=== PATIENT | male | born 1995 | race Caucasian/White ===

== ENCOUNTER → 2016-10-19 | Outpatient (CLI) | payer OTHER ==
[~2016-10-19] MED LIST: DOCU-30 PO; FAMO-79 PO; FILG300D2 PO; HYDR-3241 PO; LORA0.5T PO; LORA10CA PO; ONDA-39 PO; POTA20TA14 PO; POTA20TA91 PO; POTASSIUM; SULF1TAB3 PO; no home meds
== END | disposition home or self-care (01) ==
LOC: RAD 15:47
PROVIDERS: ATTEND Internal Medicine Hematology & Oncology
DX: C85.29 Mediastinal (thymic) large B-cell lymphoma, extranodal and solid organ sites (principal)
CPT/HCPCS: J1642

== ENCOUNTER → 2016-11-07 | Outpatient (CLI) | payer OTHER ==
[~2016-11-07] MED LIST changes: +GADOBUTROL 7.5 MMOL/7.5 ML PFS ONE; +GUAI5SYR PO; +NYST1000 PO
== END | disposition home or self-care (01) ==
LOC: RAD 14:17
PROVIDERS: ATTEND Internal Medicine Hematology & Oncology
DX: R51 Headache (principal); H53.9 Unspecified visual disturbance; C85.90 Non-Hodgkin lymphoma, unspecified, unspecified site
CPT/HCPCS: 70543; 70553; A9585

== ENCOUNTER 2016-11-09 12:09 | Inpatient (IN) | payer OTHER ==
[~2016-11-09] VITALS: Ht 182.9 cm; Wt 68.6 kg
[~2016-11-09 12:09] MED LIST changes: -GADOBUTROL 7.5 MMOL/7.5 ML PFS ONE
[2016-11-09] MEDS ORDERED: PLEASE ENTER HEIGHT AND WEIGHT MC SCH (13:00)
[2016-11-09] MEDS ORDERED: NACL IV SCH (13:30)
[2016-11-09] MEDS ORDERED: SODIUM ACETATE IV SCH (13:30)
[2016-11-09] MEDS ORDERED: D5 IV SCH (13:30)
[2016-11-09 13:40] LABS: HEMOGLOBIN 11.9 g/dL (13.7-18.0)
[2016-11-09 13:52] LABS: ASPARTATE AMINO TRANSFERASE 22 U/L (15-37); BLOOD UREA NITROGEN 10 mg/dL (7-18)
[2016-11-09] MEDS: NACL IV SCH ×2 (13:58→22:00)
[2016-11-09] MEDS: D5 IV SCH ×2 (13:58→22:00)
[2016-11-09] MEDS: SODIUM ACETATE IV SCH ×2 (13:58→22:00)
[2016-11-09] MEDS ORDERED: PROCHLORPERAZINE 5 MG TABLET PO PRN (14:00)
[2016-11-09] MEDS ORDERED: HYDROcodone/APAP 5/325 TABLET PO PRN (14:00)
[2016-11-09] MEDS ORDERED: ZOLPIDEM 5MG TABLET PO PRN (14:00)
[2016-11-09] MEDS ORDERED: ACETAMINOPHEN 325 MG TABLET PO PRN (14:00)
[2016-11-09 14:15] VITALS: BP 105/64
[2016-11-09] MEDS ORDERED: RITUXIMAB IV ONE ×2 (14:30→16:30)
[2016-11-09] MEDS ORDERED: SODIUM CHLORIDE 0.9% IV ONE ×2 (14:30→16:30)
[2016-11-09] MEDS ORDERED: FOSAPREPITANT 150 MG in SODIUM CHLORIDE 0.9% 145 ML IV ONE (15:00)
[2016-11-09] MEDS ORDERED: DIPHENHYDRAMINE 25 MG CAPSULE PO ONE (15:30)
[2016-11-09] MEDS ORDERED: ACETAMINOPHEN 325 MG TABLET PO ONE (15:30)
[2016-11-09] MEDS ORDERED: ONDANSETRON 16 MG in SODIUM CHLORIDE 0.9% 50 ML IVPB ONE (15:30)
[2016-11-09] MEDS: predniSONE 50MG TABLET PO SCH ×2 (15:42→21:18)
[2016-11-09] MEDS: FAMOTIDINE 20 MG/2 ML IVPush SCH (15:42)
[2016-11-09 19:39] VITALS: BP 115/75
[2016-11-09] MEDS: LORazepam 0.5MG TABLET PO PRN (21:18)
[2016-11-09] MEDS: [UNRECOGNIZED DRUG - OTHER] IV SCH (22:44)
[2016-11-09] MEDS: VINCRISTINE IV SCH (22:44)
[2016-11-09] MEDS: DOXORUBICIN IV SCH (22:44)
[2016-11-09] MEDS: ETOPOSIDE IV SCH (22:44)
[2016-11-10 03:59] VITALS: BP 134/62
[2016-11-10] MEDS: SODIUM ACETATE IV SCH ×2 (05:18→14:40)
[2016-11-10] MEDS: D5 IV SCH ×2 (05:18→14:40)
[2016-11-10] MEDS: NACL IV SCH ×2 (05:18→14:40)
[2016-11-10 05:59] LABS: HEMOGLOBIN 11.7 g/dL (13.7-18.0)
[2016-11-10 06:12] LABS: ASPARTATE AMINO TRANSFERASE 10 U/L (15-37); BLOOD UREA NITROGEN 11 mg/dL (7-18)
[2016-11-10 07:10] VITALS: BP 124/62
[2016-11-10] MEDS: predniSONE 50MG TABLET PO SCH ×2 (07:26→19:35)
[2016-11-10] MEDS: SULFAMETH./TRIMETHOPRIM DS 800MG/160MG TABLET PO SCH (07:26)
[2016-11-10] MEDS: OMEPRAZOLE 20 MG CAPSULE.DR PO SCH (07:26)
[2016-11-10 12:58] VITALS: BP 135/76
[2016-11-10] MEDS: NEUTRA PHOS K 250 MG TABLET PO SCH ×2 (13:39→19:34)
[2016-11-10] MEDS: FAMOTIDINE 20 MG/2 ML IVPush SCH (14:40)
[2016-11-10 19:56] VITALS: BP 123/63
[2016-11-10] MEDS: VINCRISTINE IV SCH (22:56)
[2016-11-10] MEDS: DOXORUBICIN IV SCH (22:56)
[2016-11-10] MEDS: [UNRECOGNIZED DRUG - OTHER] IV SCH (22:56)
[2016-11-10] MEDS: ETOPOSIDE IV SCH (22:56)
[2016-11-11] MEDS: D5 IV SCH ×3 (01:14→22:44)
[2016-11-11] MEDS: SODIUM ACETATE IV SCH ×3 (01:14→22:44)
[2016-11-11] MEDS: NACL IV SCH ×3 (01:14→22:44)
[2016-11-11 03:36] VITALS: BP 119/64
[2016-11-11 06:27] LABS: HEMOGLOBIN 10.8 g/dL (13.7-18.0)
[2016-11-11 06:36] LABS: ASPARTATE AMINO TRANSFERASE 12 U/L (15-37); BLOOD UREA NITROGEN 9 mg/dL (7-18)
[2016-11-11 07:13] VITALS: BP 133/75
[2016-11-11] MEDS: OMEPRAZOLE 20 MG CAPSULE.DR PO SCH (09:26)
[2016-11-11] MEDS: predniSONE 50MG TABLET PO SCH ×2 (09:26→21:37)
[2016-11-11] MEDS ORDERED: LORATADINE 10 MG TABLET PO PRN (10:00)
[2016-11-11 14:52] VITALS: BP 145/83
[2016-11-11] MEDS: FAMOTIDINE 20 MG/2 ML IVPush SCH (15:52)
[2016-11-11 19:50] VITALS: BP 136/80
[2016-11-11] MEDS: LORazepam 0.5MG TABLET PO PRN (23:49)
[2016-11-12] MEDS: VINCRISTINE IV SCH (00:24)
[2016-11-12] MEDS: DOXORUBICIN IV SCH (00:24)
[2016-11-12] MEDS: ETOPOSIDE IV SCH (00:24)
[2016-11-12] MEDS: [UNRECOGNIZED DRUG - OTHER] IV SCH (00:24)
[2016-11-12 03:55] VITALS: BP 139/72
[2016-11-12 06:21] LABS: HEMOGLOBIN 11.6 g/dL (13.7-18.0)
[2016-11-12 06:23] LABS: ASPARTATE AMINO TRANSFERASE 11 U/L (15-37); BLOOD UREA NITROGEN 10 mg/dL (7-18)
[2016-11-12] MEDS: predniSONE 50MG TABLET PO SCH ×2 (08:03→21:43)
[2016-11-12] MEDS: OMEPRAZOLE 20 MG CAPSULE.DR PO SCH (08:03)
[2016-11-12 08:16] VITALS: BP 135/73
[2016-11-12] MEDS: NACL IV SCH ×2 (09:17→21:04)
[2016-11-12] MEDS: SODIUM ACETATE IV SCH ×2 (09:17→21:04)
[2016-11-12] MEDS: D5 IV SCH ×2 (09:17→21:04)
[2016-11-12] MEDS ORDERED: ONDANSETRON 2MG/ML, 2ML IVPush PRN (12:00)
[2016-11-12 13:43] VITALS: BP_SYST 132; BP_SYST 148; BP_DIAS 73; BP_DIAS 81
[2016-11-12] MEDS: FAMOTIDINE 20 MG/2 ML IVPush SCH (16:05)
[2016-11-12 20:35] VITALS: BP 132/66
[2016-11-13] MEDS: ETOPOSIDE IV SCH (00:36)
[2016-11-13] MEDS: [UNRECOGNIZED DRUG - OTHER] IV SCH (00:36)
[2016-11-13] MEDS: VINCRISTINE IV SCH (00:36)
[2016-11-13] MEDS: DOXORUBICIN IV SCH (00:36)
[2016-11-13 02:59] VITALS: BP 121/70
[2016-11-13 04:39] LABS: HEMOGLOBIN 11.9 g/dL (13.7-18.0)
[2016-11-13 04:56] LABS: BLOOD UREA NITROGEN 11 mg/dL (7-18)
[2016-11-13 05:00] LABS: ASPARTATE AMINO TRANSFERASE 12 U/L (15-37)
[2016-11-13 07:22] VITALS: BP 137/87
[2016-11-13] MEDS: predniSONE 50MG TABLET PO SCH ×2 (08:17→20:42)
[2016-11-13] MEDS: OMEPRAZOLE 20 MG CAPSULE.DR PO SCH (08:17)
[2016-11-13] MEDS: SULFAMETH./TRIMETHOPRIM DS 800MG/160MG TABLET PO SCH (08:19)
[2016-11-13] MEDS: D5 IV SCH ×2 (08:20→19:47)
[2016-11-13] MEDS: SODIUM ACETATE IV SCH ×2 (08:20→19:47)
[2016-11-13] MEDS: NACL IV SCH ×2 (08:20→19:47)
[2016-11-13 12:44] VITALS: BP 148/70
[2016-11-13] MEDS: FAMOTIDINE 20 MG/2 ML IVPush SCH (16:22)
[2016-11-13 20:00] VITALS: BP 136/61
[2016-11-14] MEDS ORDERED: SODIUM CHLORIDE 0.9% IVPB ONE ×3 (00:45→11:00)
[2016-11-14] MEDS ORDERED: MESNA IVPB ONE ×3 (00:45→11:00)
[2016-11-14] MEDS ORDERED: SODIUM CHLORIDE 0.9% IV ONE (01:00)
[2016-11-14] MEDS ORDERED: CYCLOPHOSPHAMIDE IV ONE (01:00)
[2016-11-14 04:48] VITALS: BP 153/84
[2016-11-14 05:19] LABS: HEMOGLOBIN 11.4 g/dL (13.7-18.0)
[2016-11-14 05:30] LABS: BLOOD UREA NITROGEN 13 mg/dL (7-18)
[2016-11-14 05:33] LABS: ASPARTATE AMINO TRANSFERASE 16 U/L (15-37)
[2016-11-14] MEDS: D5 IV SCH (05:55)
[2016-11-14] MEDS: NACL IV SCH (05:55)
[2016-11-14] MEDS: SODIUM ACETATE IV SCH (05:55)
[2016-11-14 07:18] VITALS: BP 138/72
[2016-11-14] MEDS: OMEPRAZOLE 20 MG CAPSULE.DR PO SCH (07:57)
[2016-11-14] MEDS ORDERED: POTASSIUM CHLORIDE 20 MEQ TAB.ER.PRT PO ONE (09:30)
[2016-11-14] MEDS ORDERED: NEUTRA PHOS K 250 MG TABLET PO ONE (09:30)
[2016-11-14] MEDS ORDERED: SULF1TAB24 PO (11:35)
[2016-11-14] MEDS ORDERED: LORazepam 1MG TABLET ONE (11:52)
[2016-11-14] MEDS: LORazepam 0.5MG TABLET PO PRN (11:55)
== END 2016-11-14 13:11 | disposition home or self-care (01) | DRG 847 ==
LOC: 3NE 12:09 → 3NW 12:29
PROVIDERS: ADMIT Internal Medicine Hematology & Oncology; ATTEND Internal Medicine Hematology & Oncology
DX: Z51.11 Encounter for antineoplastic chemotherapy (principal); C85.20 Mediastinal (thymic) large B-cell lymphoma, unspecified site; C79.00 Secondary malignant neoplasm of unspecified kidney and renal pelvis; C79.51 Secondary malignant neoplasm of bone; C78.89 Secondary malignant neoplasm of other digestive organs; C78.00 Secondary malignant neoplasm of unspecified lung; G43.909 Migraine, unspecified, not intractable, without status migrainosus; G43.109 Migraine with aura, not intractable, without status migrainosus; G40.909 Epilepsy, unspecified, not intractable, without status epilepticus; Z80.3 Family history of malignant neoplasm of breast; Z80.1 Family history of malignant neoplasm of trachea, bronchus and lung; K12.30 Oral mucositis (ulcerative), unspecified; R53.83 Other fatigue; R63.4 Abnormal weight loss; R20.0 Anesthesia of skin
CPT/HCPCS: 36415; 80053; 83615; 83735; 84100; 84550; 85025; 85610; 85730; J1453; J2405; J9000; J9070; J9181; J9209; J9310; J7030; J7050; J7512; J9370; Q0163; S0028

== ENCOUNTER 2016-11-28 05:43 | Day surgery (SDC) | payer OTHER ==
[~2016-11-28] VITALS: Ht 182.9 cm; Wt 64.0 kg
[~2016-11-28 05:43] MED LIST changes: +SULF1TAB24 PO
[2016-11-28 06:20] VITALS: BP 121/48
[2016-11-28] MEDS ORDERED: LACTATED RINGERS 1,000 ML IV SCH (06:25)
[2016-11-28] MEDS ORDERED: NYST5000 PO (06:45)
[2016-11-28 06:46] VITALS: BP 113/67
[2016-11-28] MEDS ORDERED: POTA20TA89 PO (06:46)
[2016-11-28] MEDS ORDERED: FENTANYL PF 250 MCG/5ML ONE (07:06)
[2016-11-28] MEDS ORDERED: MIDAZOLAM 1 MG/ML, 2ML ONE (07:06)
[2016-11-28] MEDS ORDERED: MEPERIDINE/PF 25MG/0.5ML IVPush PRN (07:30)
[2016-11-28] MEDS ORDERED: PROMETHAZINE 25 MG/ML, 1ML IV PRN (07:30)
[2016-11-28] MEDS ORDERED: FENTANYL PF 100 MCG/2ML IV PRN (07:30)
[2016-11-28] MEDS ORDERED: OXYcodone 5 MG/5 ML ORAL.SOL UDC PO PRN (07:30)
[2016-11-28] MEDS ORDERED: ALBUTEROL SULFATE 2.5 MG/3 ML NPPB PRN (07:30)
[2016-11-28] MEDS ORDERED: LABETALOL 5MG/ML, 20ML IV PRN (07:30)
[2016-11-28] MEDS ORDERED: hydrALAzine 20 MG/ML, 1ML IV PRN (07:30)
[2016-11-28] MEDS ORDERED: HYDROmorphone 1 MG/ML, 1ML IV PRN (07:30)
[2016-11-28] MEDS ORDERED: ONDANSETRON 2MG/ML, 2ML IVPush PRN (07:30)
[2016-11-28] MEDS ORDERED: MIDAZOLAM 1 MG/ML, 2ML IV PRN (07:30)
[2016-11-28] MEDS ORDERED: ACETAMINOPHEN 325 MG TABLET PO PRN (07:30)
[2016-11-28] MEDS ORDERED: OMNIPAQUE 350 MG/ML, 50 ML BOTTLE ONE (08:25)
[2016-11-28] MEDS ORDERED: ROCURONIUM 10 MG/ML ONE (15:25)
[2016-11-28] MEDS ORDERED: DEXAMETHASONE 4 MG/ML, 1ML ONE (15:25)
[2016-11-28] MEDS ORDERED: SUCCINYLCHOLINE 20 MG/ML, 10ML ONE (15:25)
[2016-11-28] MEDS ORDERED: PROPOFOL 10 MG/ML, 20ML ONE (15:25)
[2016-11-28] MEDS ORDERED: ONDANSETRON 2MG/ML, 2ML ONE (15:25)
== END 2016-11-28 09:45 ==
LOC: OUT 05:43
PROVIDERS: ATTEND Internal Medicine Geriatric Medicine
DX: C85.83 Other specified types of non-Hodgkin lymphoma, intra-abdominal lymph nodes (principal)
CPT/HCPCS: 43275; 74328; C1769; J0330; J1100; J2250; J2405; J2704; J3010; J7120; Q9967

== ENCOUNTER 2016-11-30 08:16 | Inpatient (IN) | payer OTHER ==
[~2016-11-30] VITALS: Ht 182.9 cm; Wt 69.4 kg
[~2016-11-30 08:16] MED LIST changes: +NYST5000 PO; +POTA20TA89 PO
[2016-11-30 09:04] VITALS: BP 121/68
[2016-11-30] MEDS ORDERED: MIDAZOLAM 1 MG/ML, 5ML ONE (09:55)
[2016-11-30] MEDS ORDERED: FENTANYL PF 100 MCG/2ML ONE (09:56)
[2016-11-30 10:05] LABS: BLOOD UREA NITROGEN 13 mg/dL (7-18)
[2016-11-30 10:08] LABS: ASPARTATE AMINO TRANSFERASE 14 U/L (15-37)
[2016-11-30 10:27] LABS: DIFF TOTAL CELLS COUNTED 100 CELL DIFF
[2016-11-30 10:28] LABS: ANISOCYTOSIS 1+; VERIFY COUNTS? YES
[2016-11-30 10:42] LABS: CYTOLOGY BODY FLUID RECD INTO PATHOLOGY; CYTOLOGY BODY FLUID SOURCE CEREBROSPINAL FLUID
[2016-11-30 10:57] LABS: GLUCOSE, CSF 47 mg/dL (40-80)
[2016-11-30] MEDS ORDERED: METHOTREXATE/PF 2ML 12 MG in SODIUM CHLORIDE 0.9% 4.52 ML IT ONE (11:00)
[2016-11-30] MEDS ORDERED: SODIUM ACETATE IV ONE (11:00)
[2016-11-30] MEDS ORDERED: NACL IV ONE (11:00)
[2016-11-30] MEDS ORDERED: D5 IV ONE (11:00)
[2016-11-30] MEDS: NACL IV SCH (11:03)
[2016-11-30] MEDS: SODIUM ACETATE IV SCH (11:03)
[2016-11-30] MEDS: D5 IV SCH (11:03)
[2016-11-30] MEDS ORDERED: PROCHLORPERAZINE 10MG TABLET PO PRN (11:30)
[2016-11-30] MEDS ORDERED: HYDROcodone/APAP 5/325 TABLET PO PRN (11:30)
[2016-11-30] MEDS ORDERED: LORazepam 0.5MG TABLET PO PRN (11:30)
[2016-11-30] MEDS ORDERED: FOSAPREPITANT 150 MG in SODIUM CHLORIDE 0.9% 150 ML IV ONE (12:30)
[2016-11-30] MEDS ORDERED: ACETAMINOPHEN 325 MG TABLET PO ONE (12:30)
[2016-11-30] MEDS ORDERED: ONDANSETRON 16 MG in SODIUM CHLORIDE 0.9% 50 ML IVPB ONE (12:30)
[2016-11-30] MEDS ORDERED: DIPHENHYDRAMINE 25 MG CAPSULE PO ONE (12:30)
[2016-11-30] MEDS: FAMOTIDINE 20 MG/2 ML IVPush SCH (12:42)
[2016-11-30] MEDS: predniSONE 50MG TABLET PO SCH ×2 (12:43→21:20)
[2016-11-30 13:21] VITALS: BP 116/70
[2016-11-30] MEDS: OMEPRAZOLE 20 MG CAPSULE.DR PO SCH (13:59)
[2016-11-30] MEDS ORDERED: RITUXIMAB 700 MG in SODIUM CHLORIDE 0.9% 250 ML IV ONE (14:00)
[2016-11-30] MEDS: DOXORUBICIN IV SCH (18:24)
[2016-11-30] MEDS: [UNRECOGNIZED DRUG - OTHER] IV SCH (18:24)
[2016-11-30] MEDS: ETOPOSIDE IV SCH (18:24)
[2016-11-30] MEDS: VINCRISTINE IV SCH (18:24)
[2016-11-30] MEDS ORDERED: ACETAMINOPHEN 325 MG TABLET PO PRN (18:30)
[2016-11-30] MEDS ORDERED: ONDANSETRON 2MG/ML, 2ML IVPush PRN (19:00)
[2016-11-30 20:26] VITALS: BP 122/74
[2016-11-30] MEDS ORDERED: ZOLPIDEM 5MG TABLET PO PRN (21:00)
[2016-12-01 03:37] VITALS: BP 109/58
[2016-12-01] MEDS: D5 IV SCH ×2 (03:37→17:51)
[2016-12-01] MEDS: SODIUM ACETATE IV SCH ×2 (03:37→17:51)
[2016-12-01] MEDS: NACL IV SCH ×2 (03:37→17:51)
[2016-12-01 04:49] LABS: ASPARTATE AMINO TRANSFERASE 13 U/L (15-37); BLOOD UREA NITROGEN 8 mg/dL (7-18)
[2016-12-01 08:10] VITALS: BP 112/72
[2016-12-01] MEDS: SULFAMETH./TRIMETHOPRIM DS 800MG/160MG TABLET PO SCH (08:20)
[2016-12-01] MEDS: OMEPRAZOLE 20 MG CAPSULE.DR PO SCH (08:20)
[2016-12-01] MEDS: predniSONE 50MG TABLET PO SCH ×2 (08:21→19:30)
[2016-12-01] MEDS: FAMOTIDINE 20 MG/2 ML IVPush SCH (08:23)
[2016-12-01 12:49] VITALS: BP 120/75
[2016-12-01] MEDS: ETOPOSIDE IV SCH (19:33)
[2016-12-01] MEDS: VINCRISTINE IV SCH (19:33)
[2016-12-01] MEDS: DOXORUBICIN IV SCH (19:33)
[2016-12-01] MEDS: [UNRECOGNIZED DRUG - OTHER] IV SCH (19:33)
[2016-12-01 21:15] VITALS: BP 117/51
[2016-12-02 04:54] VITALS: BP 134/74
[2016-12-02 05:30] LABS: BLOOD UREA NITROGEN 10 mg/dL (7-18)
[2016-12-02 05:34] LABS: ASPARTATE AMINO TRANSFERASE 11 U/L (15-37)
[2016-12-02 07:48] VITALS: BP 127/67
[2016-12-02] MEDS: predniSONE 50MG TABLET PO SCH ×2 (08:08→20:37)
[2016-12-02] MEDS: OMEPRAZOLE 20 MG CAPSULE.DR PO SCH (08:08)
[2016-12-02] MEDS: SODIUM ACETATE IV SCH ×2 (09:13→23:39)
[2016-12-02] MEDS: FAMOTIDINE 20 MG/2 ML IVPush SCH (09:13)
[2016-12-02] MEDS: D5 IV SCH ×2 (09:13→23:39)
[2016-12-02] MEDS: NACL IV SCH ×2 (09:13→23:39)
[2016-12-02 13:07] VITALS: BP 132/78
[2016-12-02 20:17] VITALS: BP 139/79
[2016-12-02] MEDS: VINCRISTINE IV SCH (20:44)
[2016-12-02] MEDS: [UNRECOGNIZED DRUG - OTHER] IV SCH (20:44)
[2016-12-02] MEDS: DOXORUBICIN IV SCH (20:44)
[2016-12-02] MEDS: ETOPOSIDE IV SCH (20:44)
[2016-12-03] MEDS ORDERED: DOCUSATE 100 MG CAPSULE PO PRN (00:30)
[2016-12-03 01:08] VITALS: BP 145/90
[2016-12-03 05:46] VITALS: BP 121/66
[2016-12-03 06:07] LABS: BLOOD UREA NITROGEN 9 mg/dL (7-18)
[2016-12-03 06:10] LABS: ASPARTATE AMINO TRANSFERASE 11 U/L (15-37)
[2016-12-03 07:12] VITALS: BP 120/57
[2016-12-03] MEDS: OMEPRAZOLE 20 MG CAPSULE.DR PO SCH (07:30)
[2016-12-03] MEDS: FAMOTIDINE 20 MG/2 ML IVPush SCH (08:38)
[2016-12-03] MEDS: predniSONE 50MG TABLET PO SCH ×2 (08:39→19:52)
[2016-12-03 13:38] VITALS: BP 124/78
[2016-12-03] MEDS: NACL IV SCH (15:07)
[2016-12-03] MEDS: SODIUM ACETATE IV SCH (15:07)
[2016-12-03] MEDS: D5 IV SCH (15:07)
[2016-12-03 20:25] VITALS: BP 130/70
[2016-12-03] MEDS: ETOPOSIDE IV SCH (21:50)
[2016-12-03] MEDS: [UNRECOGNIZED DRUG - OTHER] IV SCH (21:50)
[2016-12-03] MEDS: VINCRISTINE IV SCH (21:50)
[2016-12-03] MEDS: DOXORUBICIN IV SCH (21:50)
[2016-12-04 02:58] VITALS: BP 121/67
[2016-12-04] MEDS: SODIUM ACETATE IV SCH ×2 (06:06→21:09)
[2016-12-04] MEDS: D5 IV SCH ×2 (06:06→21:09)
[2016-12-04] MEDS: NACL IV SCH ×2 (06:06→21:09)
[2016-12-04 06:21] LABS: ASPARTATE AMINO TRANSFERASE 11 U/L (15-37); BLOOD UREA NITROGEN 12 mg/dL (7-18)
[2016-12-04 06:43] VITALS: BP 134/81
[2016-12-04] MEDS: OMEPRAZOLE 20 MG CAPSULE.DR PO SCH (08:12)
[2016-12-04] MEDS: FAMOTIDINE 20 MG/2 ML IVPush SCH (08:12)
[2016-12-04] MEDS: SULFAMETH./TRIMETHOPRIM DS 800MG/160MG TABLET PO SCH (09:30)
[2016-12-04] MEDS: predniSONE 50MG TABLET PO SCH ×2 (09:30→21:09)
[2016-12-04 12:42] VITALS: BP 120/71
[2016-12-04] MEDS ORDERED: NALOXONE 1 MG/ML, 2ML ONE (13:30)
[2016-12-04] MEDS ORDERED: FLUMAZENIL 0.1 MG/1 ML, 5ML ONE (13:30)
[2016-12-04] MEDS ORDERED: FENTANYL PF 100 MCG/2ML ONE (13:30)
[2016-12-04] MEDS ORDERED: MIDAZOLAM 1 MG/ML, 5ML ONE (13:30)
[2016-12-04] MEDS ORDERED: METHOTREXATE/PF 2ML 12 MG in SODIUM CHLORIDE 0.9% 4.52 ML IT ONE (14:00)
[2016-12-04 20:40] VITALS: BP 146/61
[2016-12-04] MEDS ORDERED: SODIUM CHLORIDE 0.9% IVPB ONE (22:00)
[2016-12-04] MEDS ORDERED: MESNA IVPB ONE (22:00)
[2016-12-04] MEDS ORDERED: SODIUM CHLORIDE 0.9% IV ONE (22:15)
[2016-12-04] MEDS ORDERED: CYCLOPHOSPHAMIDE IV ONE (22:15)
[2016-12-05 02:17] VITALS: BP 140/65
[2016-12-05 03:25] LABS: BLOOD UREA NITROGEN 15 mg/dL (7-18)
[2016-12-05 03:29] LABS: ASPARTATE AMINO TRANSFERASE 14 U/L (15-37)
[2016-12-05] MEDS: MESNA IVPB SCH ×2 (06:19→10:14)
[2016-12-05] MEDS: SODIUM CHLORIDE 0.9% IVPB SCH ×2 (06:19→10:14)
[2016-12-05 06:40] VITALS: BP 113/63
[2016-12-05] MEDS: OMEPRAZOLE 20 MG CAPSULE.DR PO SCH (08:29)
[2016-12-05] MEDS ORDERED: POTASSIUM CHLORIDE 20 MEQ TAB.ER.PRT PO ONE (09:00)
== END 2016-12-05 12:09 | disposition home or self-care (01) | DRG 847 ==
LOC: 3NW 08:42 → OBSVTOIN 08:42 → INTOOBSV 08:42 → 3NW 20:38
PROVIDERS: ADMIT Internal Medicine Hematology & Oncology; ATTEND Internal Medicine Hematology & Oncology
PROC: 3E0R305 Introduction of Other Antineoplastic into Spinal Canal, Percutaneous Approach (ICD-10-PCS; principal; 2016-11-30)
PROC: B01B1ZZ Fluoroscopy of Spinal Cord using Low Osmolar Contrast (ICD-10-PCS; 2016-11-30)
PROC: 009U3ZX Drainage of Spinal Canal, Percutaneous Approach, Diagnostic (ICD-10-PCS; 2016-11-30)
PROC: 009U3ZX Drainage of Spinal Canal, Percutaneous Approach, Diagnostic (ICD-10-PCS; 2016-12-04)
PROC: B01B1ZZ Fluoroscopy of Spinal Cord using Low Osmolar Contrast (ICD-10-PCS; 2016-12-04)
PROC: 3E0R305 Introduction of Other Antineoplastic into Spinal Canal, Percutaneous Approach (ICD-10-PCS; 2016-12-04)
DX: Z51.11 Encounter for antineoplastic chemotherapy (principal); C85.29 Mediastinal (thymic) large B-cell lymphoma, extranodal and solid organ sites; D64.9 Anemia, unspecified; E87.6 Hypokalemia; F41.9 Anxiety disorder, unspecified; G40.909 Epilepsy, unspecified, not intractable, without status epilepticus; G97.1 Other reaction to spinal and lumbar puncture; K86.9 Disease of pancreas, unspecified; Z80.1 Family history of malignant neoplasm of trachea, bronchus and lung; Z80.3 Family history of malignant neoplasm of breast; G43.909 Migraine, unspecified, not intractable, without status migrainosus
CPT/HCPCS: 36415; 62270; 77002; 80053; 82945; 83615; 83735; 84100; 84157; 85025; 85610; 85730; 88108; 96450; 99156; 99157; J1453; J2250; J2405; J3010; J9000; J9070; J9181; J9209; J9250; J9310; J2310; J7030; J7050; J7512; J9370; Q0163; S0028

== ENCOUNTER 2016-12-09 19:47 | Emergency (ER) | payer OTHER ==
[~2016-12-09] VITALS: Ht 182.9 cm; Wt 67.3 kg
[2016-12-09] MEDS ORDERED: ONDANSETRON 2MG/ML, 2ML ONE (20:49)
[2016-12-09] MEDS ORDERED: MORPHINE SULFATE 4 MG/ML, 1ML ONE (20:49)
[2016-12-09] MEDS ORDERED: OMNIPAQUE 350 MG/ML, 100ML BOTTLE ONE (20:57)
[2016-12-09] MEDS ORDERED: ONDANSETRON 2MG/ML, 2ML IVPush ONE (21:00)
[2016-12-09] MEDS ORDERED: MORPHINE SULFATE 4 MG/ML, 1ML IVPush PRN (21:00)
[2016-12-09] MEDS ORDERED: SODIUM CHLORIDE 0.9% 1,000ML IVBOLUS ONE (21:00)
[2016-12-09] MEDS ORDERED: SODIUM CHLORIDE FLUSH 10ML SYR IVF ONE (21:00)
[2016-12-09 21:08] LABS: ASPARTATE AMINO TRANSFERASE 13 U/L (15-37); BLOOD UREA NITROGEN 17 mg/dL (7-18)
[2016-12-09 21:11] LABS: DIFF TOTAL CELLS COUNTED 100 CELL DIFF
[2016-12-09 21:23] LABS: ANISOCYTOSIS 1+; VERIFY COUNTS? YES
[2016-12-09 21:24] LABS: OVALOCYTES 1+
[2016-12-09 21:25] LABS: LARGE PLATELETS 1+
[2016-12-09 22:49] VITALS: BP 114/54
== END 2016-12-09 22:51 | disposition home or self-care (01) ==
LOC: ED 22:21
DX: R51 Headache (principal); Z85.72 Personal history of non-Hodgkin lymphomas
CPT/HCPCS: 36415; 70487; 80053; 83605; 84145; 85025; 87040; 96360; 96361; 99285; J7030; Q9967

== ENCOUNTER 2016-12-21 08:00 | Inpatient (IN) | payer OTHER ==
[~2016-12-21] VITALS: Ht 182.9 cm; Wt 71.1 kg
[2016-12-21 09:24] VITALS: BP 110/66
[2016-12-21] MEDS ORDERED: PROCHLORPERAZINE 10MG TABLET PO PRN (10:00)
[2016-12-21] MEDS ORDERED: ACETAMINOPHEN 325 MG TABLET PO PRN (10:00)
[2016-12-21] MEDS ORDERED: ZOLPIDEM 5MG TABLET PO PRN (10:00)
[2016-12-21] MEDS ORDERED: HYDROcodone/APAP 5/325 TABLET PO PRN (10:00)
[2016-12-21] MEDS ORDERED: LORazepam 0.5MG TABLET PO PRN (10:00)
[2016-12-21] MEDS: SODIUM ACETATE IV SCH (10:32)
[2016-12-21] MEDS: D5 IV SCH (10:32)
[2016-12-21] MEDS: NACL IV SCH (10:32)
[2016-12-21 10:33] LABS: ASPARTATE AMINO TRANSFERASE 19 U/L (15-37); BLOOD UREA NITROGEN 6 mg/dL (7-18)
[2016-12-21 10:43] LABS: DIFF TOTAL CELLS COUNTED 100 CELL DIFF
[2016-12-21] MEDS ORDERED: METHOTREXATE/PF 2ML 12 MG in SODIUM CHLORIDE 0.9% 4.52 ML IT ONE (11:00)
[2016-12-21 11:08] LABS: VERIFY COUNTS? YES
[2016-12-21] MEDS ORDERED: FENTANYL PF 100 MCG/2ML ONE (11:11)
[2016-12-21] MEDS ORDERED: MIDAZOLAM 1 MG/ML, 5ML ONE (11:11)
[2016-12-21] MEDS ORDERED: ONDANSETRON 16 MG in SODIUM CHLORIDE 0.9% 50 ML IVPB ONE (13:00)
[2016-12-21] MEDS ORDERED: ACETAMINOPHEN 325 MG TABLET PO ONE (13:00)
[2016-12-21] MEDS ORDERED: FOSAPREPITANT 150 MG in SODIUM CHLORIDE 0.9% 150 ML IV ONE (13:00)
[2016-12-21] MEDS ORDERED: DIPHENHYDRAMINE 25 MG CAPSULE PO ONE (13:00)
[2016-12-21] MEDS: OMEPRAZOLE 20 MG CAPSULE.DR PO SCH (13:13)
[2016-12-21] MEDS: predniSONE 50MG TABLET PO SCH ×2 (13:13→20:29)
[2016-12-21] MEDS: FAMOTIDINE 20 MG/2 ML IVPush SCH (13:13)
[2016-12-21] MEDS ORDERED: RITUXIMAB 700 MG in SODIUM CHLORIDE 0.9% 250 ML IV ONE (13:30)
[2016-12-21 14:36] VITALS: BP 113/66
[2016-12-21 19:43] VITALS: BP 106/62
[2016-12-21] MEDS ORDERED: VINCRISTINE IV SCH (21:00)
[2016-12-21] MEDS ORDERED: DOXORUBICIN IV SCH (21:00)
[2016-12-21] MEDS ORDERED: ETOPOSIDE IV SCH (21:00)
[2016-12-21] MEDS ORDERED: [UNRECOGNIZED DRUG - OTHER] IV SCH (21:00)
[2016-12-22 04:05] VITALS: BP 108/62
[2016-12-22] MEDS: SODIUM ACETATE IV SCH ×2 (05:39→20:23)
[2016-12-22] MEDS: D5 IV SCH ×2 (05:39→20:23)
[2016-12-22] MEDS: NACL IV SCH ×2 (05:39→20:23)
[2016-12-22 06:07] LABS: BLOOD UREA NITROGEN 7 mg/dL (7-18)
[2016-12-22 06:12] LABS: ASPARTATE AMINO TRANSFERASE 4 U/L (15-37)
[2016-12-22] MEDS: OMEPRAZOLE 20 MG CAPSULE.DR PO SCH (08:32)
[2016-12-22] MEDS: SULFAMETH./TRIMETHOPRIM DS 800MG/160MG TABLET PO SCH (08:32)
[2016-12-22] MEDS: predniSONE 50MG TABLET PO SCH ×2 (08:32→20:23)
[2016-12-22 08:33] VITALS: BP 111/50
[2016-12-22] MEDS: FAMOTIDINE 20 MG/2 ML IVPush SCH (14:01)
[2016-12-22 14:27] VITALS: BP 116/67
[2016-12-22] MEDS ORDERED: [UNRECOGNIZED DRUG - OTHER] IV SCH (18:00)
[2016-12-22] MEDS ORDERED: ETOPOSIDE IV SCH (18:00)
[2016-12-22] MEDS ORDERED: VINCRISTINE IV SCH (18:00)
[2016-12-22] MEDS ORDERED: DOXORUBICIN IV SCH (18:00)
[2016-12-22 18:55] VITALS: BP 122/69
[2016-12-23 05:27] VITALS: BP 181/50
[2016-12-23 05:38] VITALS: BP 121/64
[2016-12-23 06:02] LABS: BLOOD UREA NITROGEN 11 mg/dL (7-18)
[2016-12-23 06:05] LABS: ASPARTATE AMINO TRANSFERASE 9 U/L (15-37)
[2016-12-23] MEDS: predniSONE 50MG TABLET PO SCH ×2 (08:36→21:18)
[2016-12-23] MEDS: OMEPRAZOLE 20 MG CAPSULE.DR PO SCH (08:36)
[2016-12-23 08:40] VITALS: BP 124/73
[2016-12-23] MEDS: SODIUM ACETATE IV SCH (11:11)
[2016-12-23] MEDS: NACL IV SCH (11:11)
[2016-12-23] MEDS: D5 IV SCH (11:11)
[2016-12-23 13:50] VITALS: BP 133/77
[2016-12-23] MEDS: FAMOTIDINE 20 MG/2 ML IVPush SCH (14:24)
[2016-12-23] MEDS ORDERED: [UNRECOGNIZED DRUG - OTHER] IV SCH (18:00)
[2016-12-23] MEDS ORDERED: ETOPOSIDE IV SCH (18:00)
[2016-12-23] MEDS ORDERED: VINCRISTINE IV SCH (18:00)
[2016-12-23] MEDS ORDERED: DOXORUBICIN IV SCH (18:00)
[2016-12-23 19:56] VITALS: BP 138/79
[2016-12-24] MEDS: NACL IV SCH ×2 (00:40→14:42)
[2016-12-24] MEDS: D5 IV SCH ×2 (00:40→14:42)
[2016-12-24] MEDS: SODIUM ACETATE IV SCH ×2 (00:40→14:42)
[2016-12-24 02:16] VITALS: BP 133/72
[2016-12-24 05:53] LABS: ASPARTATE AMINO TRANSFERASE 13 U/L (15-37); BLOOD UREA NITROGEN 10 mg/dL (7-18)
[2016-12-24 07:00] VITALS: BP 142/67
[2016-12-24] MEDS: OMEPRAZOLE 20 MG CAPSULE.DR PO SCH (08:00)
[2016-12-24] MEDS: FAMOTIDINE 20 MG/2 ML IVPush SCH (08:59)
[2016-12-24] MEDS: predniSONE 50MG TABLET PO SCH ×2 (09:03→21:03)
[2016-12-24 13:40] VITALS: BP 152/78
[2016-12-24] MEDS ORDERED: DOXORUBICIN IV SCH (18:00)
[2016-12-24] MEDS ORDERED: VINCRISTINE IV SCH (18:00)
[2016-12-24] MEDS ORDERED: ETOPOSIDE IV SCH (18:00)
[2016-12-24] MEDS ORDERED: [UNRECOGNIZED DRUG - OTHER] IV SCH (18:00)
[2016-12-24 19:22] VITALS: BP 144/72
[2016-12-25 04:30] VITALS: BP 133/73
[2016-12-25] MEDS: SODIUM ACETATE IV SCH ×2 (04:51→19:44)
[2016-12-25] MEDS: NACL IV SCH ×2 (04:51→19:44)
[2016-12-25] MEDS: D5 IV SCH ×2 (04:51→19:44)
[2016-12-25 06:00] LABS: ASPARTATE AMINO TRANSFERASE 10 U/L (15-37); BLOOD UREA NITROGEN 11 mg/dL (7-18)
[2016-12-25] MEDS ORDERED: FLUMAZENIL 0.1 MG/1 ML, 5ML ONE (09:05)
[2016-12-25] MEDS ORDERED: MIDAZOLAM 1 MG/ML, 5ML ONE (09:05)
[2016-12-25] MEDS ORDERED: FENTANYL PF 100 MCG/2ML ONE (09:05)
[2016-12-25] MEDS ORDERED: NALOXONE 1 MG/ML, 2ML ONE (09:05)
[2016-12-25] MEDS ORDERED: METHOTREXATE/PF 2ML 12 MG in SODIUM CHLORIDE 0.9% 4.52 ML IT ONE ×2 (10:00→11:00)
[2016-12-25 10:48] VITALS: BP 144/76
[2016-12-25] MEDS: OMEPRAZOLE 20 MG CAPSULE.DR PO SCH (10:57)
[2016-12-25] MEDS: SULFAMETH./TRIMETHOPRIM DS 800MG/160MG TABLET PO SCH (10:58)
[2016-12-25] MEDS: predniSONE 50MG TABLET PO SCH ×2 (10:58→20:51)
[2016-12-25 12:33] VITALS: BP 140/81
[2016-12-25 14:00] VITALS: BP 124/59
[2016-12-25] MEDS: FAMOTIDINE 20 MG/2 ML IVPush SCH (14:27)
[2016-12-25] MEDS ORDERED: MESNA IVPB ONE (19:30)
[2016-12-25] MEDS ORDERED: SODIUM CHLORIDE 0.9% IVPB ONE (19:30)
[2016-12-25 19:44] VITALS: BP 130/80
[2016-12-25] MEDS ORDERED: SODIUM CHLORIDE 0.9% IV ONE (20:00)
[2016-12-25] MEDS ORDERED: CYCLOPHOSPHAMIDE IV ONE (20:00)
[2016-12-26 02:10] VITALS: BP 126/82
[2016-12-26] MEDS: SODIUM CHLORIDE 0.9% IVPB SCH ×2 (03:16→06:20)
[2016-12-26] MEDS: MESNA IVPB SCH ×2 (03:16→06:20)
[2016-12-26 03:41] LABS: ASPARTATE AMINO TRANSFERASE 13 U/L (15-37); BLOOD UREA NITROGEN 11 mg/dL (7-18)
[2016-12-26] MEDS: OMEPRAZOLE 20 MG CAPSULE.DR PO SCH (09:12)
[2016-12-26 11:55] VITALS: BP 138/82
== END 2016-12-26 16:55 | disposition home or self-care (01) | DRG 847 ==
LOC: 3NW 09:05
PROVIDERS: ADMIT Internal Medicine Hematology & Oncology; ATTEND Internal Medicine Hematology & Oncology
PROC: 3E0R305 Introduction of Other Antineoplastic into Spinal Canal, Percutaneous Approach (ICD-10-PCS; principal; 2016-12-21)
PROC: 3E0R305 Introduction of Other Antineoplastic into Spinal Canal, Percutaneous Approach (ICD-10-PCS; 2016-12-26)
DX: Z51.11 Encounter for antineoplastic chemotherapy (principal); C85.90 Non-Hodgkin lymphoma, unspecified, unspecified site; R17 Unspecified jaundice; D64.9 Anemia, unspecified; K86.9 Disease of pancreas, unspecified; Z80.1 Family history of malignant neoplasm of trachea, bronchus and lung; Z80.3 Family history of malignant neoplasm of breast
CPT/HCPCS: 36415; 77002; 80053; 83615; 83735; 84100; 85025; 85610; 85730; 96450; 99156; 99157; J1453; J2250; J2405; J3010; J9000; J9070; J9181; J9209; J9250; J9310; Q0164; J2310; J7030; J7050; J7512; J9370; Q0163; S0028

== ENCOUNTER 2017-02-14 06:35 | Day surgery (SDC) | payer OTHER ==
[~2017-02-14] VITALS: Ht 182.9 cm; Wt 64.3 kg
[2017-02-14 07:07] VITALS: BP 122/77
[2017-02-14] MEDS ORDERED: SODIUM CHLORIDE 0.9% 1,000 ML IV SCH (07:08)
[2017-02-14] MEDS ORDERED: CEFAZOLIN PMX 1GM/50ML 50 ML IV ONE (07:10)
[2017-02-14] MEDS ORDERED: MIDAZOLAM 1 MG/ML, 5ML ONE (07:42)
[2017-02-14] MEDS ORDERED: FENTANYL PF 100 MCG/2ML ONE (07:42)
[2017-02-14] MEDS ORDERED: LIDOCAINE 1%, 20ML ONE (07:46)
== END 2017-02-14 11:00 ==
LOC: OUT 06:35
PROVIDERS: ATTEND Internal Medicine Hematology & Oncology
DX: Z45.89 Encounter for adjustment and management of other implanted devices (principal); C85.29 Mediastinal (thymic) large B-cell lymphoma, extranodal and solid organ sites; Z98.890 Other specified postprocedural states
CPT/HCPCS: 36590; 77001; 99156; 99157; J0690; J2250; J3010; J3490; J7030

== ENCOUNTER → 2018-07-26 | Outpatient (CLI) | payer OTHER ==
[~2018-07-26] MED LIST changes: +DOCU-131 PO; -DOCU-30 PO; +OMNIPAQUE 350 MG/ML, 100ML BOTTLE ONE; -ONDA-39 PO; +ONDA4TAB12 PO; +SULF-169 PO; -SULF1TAB3 PO
== END | disposition home or self-care (01) ==
LOC: CFH 08:08
PROVIDERS: ATTEND Internal Medicine Hematology & Oncology
DX: C85.29 Mediastinal (thymic) large B-cell lymphoma, extranodal and solid organ sites (principal)
CPT/HCPCS: 71260; 74177; Q9967